=== PATIENT | female | born 1985 | race African-American/Black ===

== ENCOUNTER 2022-07-20 06:42 | Emergency (ER) | payer BC ==
[~2022-07-20] VITALS: Ht 175.3 cm; Wt 68.0 kg
[2022-07-20 11:56] VITALS: BP 120/85
[2022-07-20 12:03] LABS: BASOPHILS % 0.7 % (0.0-2.0); EOSINOPHILS % 1.1 % (0.0-5.0); HEMATOCRIT. 42.5 % (36.0-48.0); HEMOGLOBIN. 13.9 g/dL (12.0-16.0); LYMPHOCYTES % 30.4 % (20.0-50.0); MEAN CORPUSCULAR HEMOGLOBIN 26.1 pg (28.0-32.0); MEAN CORPUSCULAR VOLUME 79.5 fL (81.0-99.0); MEAN PLATELET VOLUME 7.4 fl (7.4-10.4); MONOCYTES % 7.4 % (2.0-8.0); NEUTROPHILS % 60.4 % (40.0-76.0); PLATELET 292 x1000/uL (130-400); RED BLOOD CELL COUNT 5.35 mill/uL (4.2-5.4); RED CELL DISTRIBUTION WIDTH 13.3 % (11.6-14.6)
[2022-07-20 12:09] LABS: CHLORIDE 104 mEq/L (98-107)
[2022-07-20 12:28] LABS: CLARITY URINE CLEAR (CLEAR); COLOR URINE YELLOW (YELLOW); KETONES URINE NEGATIVE (NEGATIVE); LEUKOCYTE ESTERASE URINE 1+ (NEGATIVE); NITRITE URINE NEGATIVE (NEGATIVE); OCCULT BLOOD URINE 2+ (NEGATIVE); PH URINE 8.5 (4.5-8.0); PROTEIN URINE TRACE (NEGATIVE); SPECIFIC GRAVITY URINE 1.019 (1.005-1.030)
[2022-07-20 12:32] LABS: B-HCG QUANTITATIVE 1970 mIU/mL (<3)
[2022-07-20] MEDS ORDERED: NITR100C PO (12:48)
[2022-07-20] MEDS ORDERED: ACETAMINOPHEN 325MG TABLET PO ONE (13:00)
== END 2022-07-20 13:16 | disposition home or self-care (01) ==
LOC: ER 06:58
DX: O26.891 Other specified pregnancy related conditions, first trimester (principal); O23.41 Unspecified infection of urinary tract in pregnancy, first trimester; O20.0 Threatened abortion; N39.0 Urinary tract infection, site not specified; Z3A.01 Less than 8 weeks gestation of pregnancy; Z88.4 Allergy status to anesthetic agent
CPT/HCPCS: 36415; 76801; 80053; 81003; 81025; 84702; 85025; 86850; 86900; 99284